=== PATIENT | female | born 1995 | race Two or more races ===

== ENCOUNTER 2021-03-04 14:07 | Emergency (ER) | payer OTHER ==
[~2021-03-04] VITALS: Ht 154.9 cm; Wt 95.5 kg
[2021-03-04 17:17] LABS: BASO # 0.1 10^3/uL (0.0-0.2); BASO % 1.1 % (0.0-1.0); EOS # 0.2 10^3/uL (0.0-0.5); EOS % 2.4 % (0.0-3.0); HEMATOCRIT 39.2 % (36.0-47.0); HEMOGLOBIN 12.3 g/dl (12.0-15.5); LYMPH # 2.9 10^3/uL (1.5-5.0); LYMPH % 29.8 % (24.0-44.0); MEAN CORPUSCULAR HEMOGLOBIN 27.8 pg (27.0-33.0); MEAN CORPUSCULAR HGB CONC 31.4 g/dl (32.0-36.5); MEAN CORPUSCULAR VOLUME 88.5 fl (80.0-96.0); MONO # 0.7 10^3/uL (0.0-0.8); MONO % 7.5 % (2.0-8.0); NEUTROPHILS # 5.7 10^3/uL (1.5-8.5); NEUTROPHILS % 58.1 % (36.0-66.0); PLATELET COUNT, AUTOMATED 287 10^3/uL (150-450); RED BLOOD COUNT 4.43 10^6/uL (4.00-5.40); WHITE BLOOD COUNT 9.9 10^3/uL (4.0-10.0)
[2021-03-04] MEDS ORDERED: BACTRIM 160MG/800MG DS TAB PO ONE (18:00)
[2021-03-04] MEDS ORDERED: BACT800T5 PO (18:00)
[2021-03-04 18:55] VITALS: BP 127/75
[2021-03-04 19:14] LABS: ERYTHROCYTE SEDIMENTATION RATE 29 mm/hr (0-20)
== END 2021-03-04 18:57 | disposition home or self-care (01) ==
LOC: M ED 14:07
DX: M79.672 Pain in left foot (principal); T81.49XA Infection following a procedure, other surgical site, initial encounter; Z48.02 Encounter for removal of sutures